=== PATIENT | female | born 1965 | race Caucasian/White ===

== ENCOUNTER 2017-04-15 14:36 | Emergency (ER) | payer OTHER ==
[~2017-04-15] VITALS: Ht 160 cm; Wt 89.0 kg
[2017-04-15 14:39] VITALS: Ht 160 cm; Wt 89.0 kg
[2017-04-15] MEDS ORDERED: ONDANSETRON 4 MG INJ IV STA (16:00)
[2017-04-15] MEDS ORDERED: FAMOTIDINE 20 MG INJ IV STA (16:00)
[2017-04-15] MEDS ORDERED: LIDOCAINE/MYLANTA 40 ML BTL PO STA (16:00)
[2017-04-15] MEDS ORDERED: SOD CHLORIDE 0.9% 1,000 ML IV STA (16:00)
--- NOTE | 2017-04-15 16:17 | RADRPT ---
PROCEDURE: XR Chest. CLINICAL INDICATION: Shortness of breath. TECHNIQUE: A single portable view of the chest was obtained. COMPARISON: None FINDINGS: The cardiomediastinal silhouette is within normal limits. The lungs and pleural spaces are clear. The soft tissues and osseous structures are unremarkable. IMPRESSION: No acute cardiopulmonary disease. RPTAT: [facility] Physician Joni Date Time Electronically viewed and signed by Sourav Grace Physician on 04/15/2017 16:17 /
[2017-04-15 16:32] LABS: ADD UMIC NO; UR ASCORBIC ACID NEGATIVE (NEGATIVE); UR BILIRUBIN (Dip) NEGATIVE (NEGATIVE); UR BLOOD (Dip) NEGATIVE (NEGATIVE); UR CLARITY CLEAR (CLEAR); UR COLOR YELLOW (YELLOW); UR GLUCOSE (Dip) NEGATIVE (NEGATIVE); UR KETONES (Dip) NEGATIVE (NEGATIVE); UR LEUKOCYTE ESTERASE (Dip) NEGATIVE Leu/ul (NEGATIVE); UR NITRITE (Dip) NEGATIVE (NEGATIVE); UR SPECIFIC GRAVITY (Dip) 1.015 (1.003-1.030); UR TOTAL PROTEIN (Dip) NEGATIVE (NEGATIVE); UR UROBILINOGEN (Dip) NEGATIVE (NEGATIVE)
[2017-04-15 16:44] LABS: BASOPHILS % 0.4 % (0.0-2.0); EOSINOPHILS # 0.1 10^3/ul (0.0-0.5); EOSINOPHILS % 1.9 % (0.0-7.0); HEMATOCRIT 39.3 % (37.0-47.0); LYMPHOCYTES # 1.9 10^3/ul (0.8-2.9); LYMPHOCYTES % 28.1 % (15.0-51.0); MEAN CORPUSCULAR HGB CONC 33.1 g/dl (32.0-37.0); MEAN CORPUSCULAR VOLUME 93.6 fl (82.0-101.0); MEAN PLATELET VOLUME 11.8 fl (7.4-10.4); MONOCYTE # 0.4 10^3/ul (0.3-0.9); MONOCYTES % 6.1 % (0.0-11.0); NEUTROPHIL # 4.3 10^3/ul (1.6-7.5); NEUTROPHILS % 63.2 % (39.0-77.0); PLATELET COUNT 229 10^3/UL (140-415); RED CELL DISTRIBUTION WIDTH 12.5 % (11.5-14.5); WHITE BLOOD COUNT 6.7 10^3/ul (4.8-10.8)
[2017-04-15 17:04] LABS: ALANINE AMINOTRANSFERASE 32 IU/L (13-69); ALBUMIN 4.4 g/dl (3.3-4.9); ALBUMIN/GLOBULIN RATIO 1.22; ALKALINE PHOSPHATASE 79 IU/L (42-121); ANION GAP 18 (8-16); ASPARTATE AMINO TRANSFERASE 26 IU/L (15-46); BILIRUBIN,INDIRECT 0.3 mg/dl (0-1.1); BILIRUBIN,TOTAL 0.3 mg/dl (0.2-1.3); BLOOD UREA NITROGEN 12 mg/dl (7-20); CALCIUM 9.4 mg/dl (8.4-10.2); CARBON DIOXIDE 26 mmol/L (21-31); CHLORIDE 104 mmol/L (97-110); CREATININE 0.63 mg/dl (0.44-1.00); GLUCOSE 84 mg/dl (70-220); POTASSIUM 3.9 mmol/L (3.5-5.1); SODIUM 144 mmol/L (135-144)
[2017-04-15 17:18] LABS: TROPONIN-I < 0.012 ng/ml (0.00-0.12)
[2017-04-15] MEDS ORDERED: ALPR0.5T6 PO (17:21)
[2017-04-15] MEDS ORDERED: RANITIDINE 150 MG TAB PO ONE (17:30)
[2017-04-15] MEDS ORDERED: RANI150T9 PO (17:33)
--- NOTE | 2017-04-15 17:33 | ERD ---
ER Documentation Chief Complaint Date/Time DATE: 04/15/17 TIME: 17:31 Chief Complaint epigastric pain since february 24, no nausea HPI This is a 51-year-old female who presents to the emergency room for evaluation of abdominal pain. The patient localizes the abdominal pain to the epigastric region and describes as an achy pain with mild radiation to her back. She denies any nausea, vomiting, shortness of breath, chest pain or diaphoresis associated with this. She denies any aggravating or relieving factors and states that she does have an appointment with a GI physician however her appointment is not until June so she came to the emergency room for evaluation. ROS All systems reviewed and are negative except as per history of present illness. Medications Home Meds Reported Medications Alprazolam* (Alprazolam*) 0.5 Mg Tablet, 0.5 MG PO QHS Y for ANXIETY, TAB 04/15/17 Allergies Allergies: Coded Allergies: No Known Allergy (Unverified , 04/15/17) PMhx/Soc History of Surgery: Yes (D/C) Anesthesia Reaction: No Hx Neurological Disorder: No Hx Respiratory Disorders: No Hx Cardiac Disorders: No Hx Psychiatric Problems: No Hx Miscellaneous Medical Probl: No Hx Alcohol Use: Yes (Social) Hx Substance Use: No Hx Tobacco Use: Yes (Vape) Smoking Status: Current every day smoker Physical Exam Vitals Vital Signs Date Time Temp Pulse Resp B/P Pulse Ox O2 Delivery O2 Flow Rate FiO2 04/15/17 14:39 98.1 68 18 136/85 99 Physical Exam INITIAL VITAL SIGNS: Reviewed by me GENERAL: The patient is well developed and appropriate for usual state of health in no apparent distress HEENT: Pupils equal, round, and reactive to light. EOMI. There is no scleral icterus. NECK: C-spine is soft and supple, there is no meningismus. There is no cervical lymphadenopathy. LUNGS: Clear to auscultation bilaterally. There are no rales, wheezes or rhonchi. HEART: Regular rate and rhythm, no murmurs, clicks, rubs or gallops. ABDOMEN: Epigastric tenderness to palpation, soft, non-tender, non-distended. There are bowel sounds in all four quadrants. No rebound or guarding. EXTREMITIES: There is no peripheral cyanosis or edema. No focal swelling or erythema. NEUROLOGICAL: The patient moves all four extremities with 5/5 strength. Cranial nerves II - XII are intact. Normal gait. Alert and oriented SKIN: There is no apparent rash or petechiae. HEME/LYMPHATIC: There is no evidence of excessive bruising or lymphedema. PSYCHIATRIC: The patient does not appear anxious or depressed. Result Diagram: 04/15/17 1625 04/15/17 1625 Results 24 hrs Laboratory Tests Test 04/15/17 16:15 04/15/17 16:25 Urine Color YELLOW Urine Clarity CLEAR Urine pH 6.0 Urine Specific [place] 1.015 Urine Ketones NEGATIVEmg/dL Urine Nitrite NEGATIVEmg/dL Urine Bilirubin NEGATIVEmg/dL Urine Urobilinogen NEGATIVEmg/dL Urine Leukocyte Esterase NEGATIVELeu/ul Urine Hemoglobin NEGATIVEmg/dL Urine Glucose NEGATIVEmg/dL Urine Total Protein NEGATIVEmg/dl White Blood Count 6.710^3/ul Red Blood Count 4.2010^6/ul Hemoglobin 13.0g/dl Hematocrit 39.3% Mean Corpuscular Volume 93.6fl Mean Corpuscular Hemoglobin 31.0pg Mean Corpuscular Hemoglobin Concent 33.1g/dl Red Cell Distribution Width 12.5% Platelet Count 61704^3/UL Mean Platelet Volume 11.8fl Neutrophils % 63.2% Lymphocytes % 28.1% Monocytes % 6.1% Eosinophils % 1.9% Basophils % 0.4% Nucleated Red Blood Cells % 0.0/100WBC Neutrophils # 4.310^3/ul Lymphocytes # 1.910^3/ul Monocytes # 0.410^3/ul Eosinophils # 0.110^3/ul Basophils # 0.010^3/ul Nucleated Red Blood Cells # 0.010^3/ul Sodium Level 144mmol/L Potassium Level 3.9mmol/L Chloride Level 104mmol/L Carbon Dioxide Level 26mmol/L Anion Gap 18 Blood Urea Nitrogen 12mg/dl Creatinine 0.63mg/dl Glucose Level 84mg/dl Calcium Level 9.4mg/dl Total Bilirubin 0.3mg/dl Direct Bilirubin 0.00mg/dl Indirect Bilirubin 0.3mg/dl Aspartate Amino Transf (AST/SGOT) 26IU/L Alanine Aminotransferase (ALT/SGPT) 32IU/L Alkaline Phosphatase 79IU/L Troponin I < 0.012ng/ml Total Protein 8.0g/dl Albumin 4.4g/dl Globulin 3.60g/dl Albumin/Globulin Ratio 1.22 Lipase 66U/L Current Medications Medications (Trade) Dose Ordered Sig/David Route PRN Reason Start Time Stop Time Status Last Admin Dose Admin Sodium Chloride (NS) 1,000 ml @ 1,000 mls/hr Q1H STAT IV 04/15/17 16:00 04/15/17 16:59 DC 04/15/17 16:09 Ondansetron HCl (Zofran Inj) 4 mg ONCE STAT IV 04/15/17 16:00 04/15/17 16:01 DC Famotidine (Pepcid Iv) 20 mg ONCE STAT IV 04/15/17 16:00 04/15/17 16:01 DC 04/15/17 16:09 Miscellaneous Medication (Gi Cocktail (2)) 40 ml ONCE STAT PO 04/15/17 16:00 04/15/17 16:01 DC 04/15/17 16:09 Procedures/MDM Chest X-ray 1V Interpreted by me: Soft Tissue: No acute abnormalities Bones: No acute abnormalities Mediastinum/Cardiac Silhouette/Lungs: [No acute abnormalities] EKG: Rate/Rhythm: [Normal Sinus Rhythm] QRS, ST, T-waves: [No changes consistent w/ acute ischemia] Impression: [No evidence of ischemia or arrhythmia] This 51-year-old female presents to the ER for evaluation of abdominal pain. When I evaluated her she did have epigastric tenderness to palpation. The patient recently underwent an ultrasound of the abdomen with results which did not show any sign of cholecystitis. The patient had lab drawn including an EKG and a troponin all of which are within normal limits. She was given a GI cocktail and Pepcid and when I reevaluated this patient she stated that she was feeling better. The patient is hemodynamically stable and nontoxic appearing. She could be suffering from gastritis and will be discharged home with a prescription for Zantac. Differential diagnoses entertained was broad with potential high acuity. Patient has been evaluated for appendicitis, cholecystitis, and other high risk medical and surgical causes of abdominal pain. Ultimately the patient's evaluation is nondiagnostic. Based on the patient's lack of risk factors, as well as the patient's clinical, laboratory, and imaging data, the patient appears to be low risk for these high risk causes of abdominal pain. Departure Diagnosis: Primary Impression: Acute gastritis Additional Impression: Abdominal pain Condition: Stable PATRICIA OLIVERA DO Apr 15, 2017 17:33
[2017-04-15 18:10] VITALS: BP 129/80; PULSE 65; RESP 19; TEMP 97.9
== END 2017-04-15 18:16 | disposition home or self-care (01) ==
LOC: E/R 14:36
DX: K29.00 Acute gastritis without bleeding (principal); F17.210 Nicotine dependence, cigarettes, uncomplicated
CPT/HCPCS: 36415; 71010; 80053; 81003; 83690; 84484; 85025; 93005; 96374; 99285; J7030

== ENCOUNTER 2017-04-22 00:41 | Emergency (ER) | payer SELFPAY ==
[~2017-04-22] VITALS: Ht 170.2 cm; Wt 87.5 kg
[~2017-04-22 00:41] MED LIST: ALPR0.5T6 PO; RANI150T9 PO
[2017-04-22 00:48] VITALS: Ht 170.2 cm; Wt 87.5 kg
== END 2017-04-22 01:50 | disposition left against medical advice (07) ==
LOC: FTE 00:41
DX: Z53.21 Procedure and treatment not carried out due to patient leaving prior to being seen by health care provider (principal)